=== PATIENT | female | born 1945 | race Caucasian/White ===

== ENCOUNTER → 2017-07-31 | Outpatient (CLI) | payer MEDICARE ==
--- NOTE | 2017-08-01 08:40 | MM ---
Reason for exam: screening (asymptomatic). Last mammogram was performed 1 year and 2 months ago. History: Patient is postmenopausal and has history of other cancer at age 65. Benign stereotactic core biopsy of the right breast, April 27, 2000. 2 cyst aspirations of the left breast. 2 cyst aspirations of the right breast. Benign excisional biopsy of the left breast. Took estrogen for 5 years. Took progesterone for 5 years. Taking other hormone for 2 months. Physical Findings: A clinical breast exam by your physician is recommended on an annual basis and results should be correlated with mammographic findings. MG Screening Mammo w CAD Bilateral CC and MLO view(s) were taken. Prior study comparison: June 13, 2016, bilateral MG screening mammo w CAD. June 04, 2015, bilateral MG screening mammo w CAD. The breast tissue is heterogeneously dense. This may lower the sensitivity of mammography. Previous mammotome biopsy in the right breast. Developing asymmetry in the left breast middle posterior depth. ASSESSMENT: Incomplete: need additional imaging evaluation, BI-RAD 0 RECOMMENDATION: Special view mammogram of the left breast. If lesion persists on supplemental views, image directed ultrasound is recommended. [facility] will attempt to contact patient to return for supplemental views and ultrasound if indicated.
== END | disposition home or self-care (01) ==
LOC: RADMAMWWP 10:42
PROVIDERS: ATTEND Obstetrics & Gynecology
DX: Z12.31 Encounter for screening mammogram for malignant neoplasm of breast (principal)
CPT/HCPCS: 77067

== ENCOUNTER → 2017-08-02 | Outpatient (CLI) | payer MEDICARE ==
--- NOTE | 2017-08-02 11:21 | MM ---
Reason for exam: additional evaluation requested from abnormal screening. Last mammogram was performed less than 1 month ago. History: Patient is postmenopausal and has history of other cancer at age 65. Benign stereotactic core biopsy of the right breast, April 27, 2000. 2 cyst aspirations of the left breast. 2 cyst aspirations of the right breast. Benign excisional biopsy of the left breast. Took estrogen for 5 years. Took progesterone for 5 years. Taking other hormone for 2 months. Physical Findings: Nurse did not find any significant physical abnormalities on exam. MG Work Up Mamm w CAD LT Spot compression CC, spot compression MLO, and LM view(s) were taken of the left breast. Prior study comparison: July 31, 2017, bilateral MG screening mammo w CAD. June 13, 2016, bilateral MG screening mammo w CAD. The breast tissue is heterogeneously dense. This may lower the sensitivity of mammography. There is no discrete abnormality on follow up diagnostic exam films, findings compatible with summation density. Mole markers used. No significant new findings when compared with previous films. These results were verbally communicated with the patient and result sheet given to the patient on 08/02/17. ASSESSMENT: Benign, BI-RAD 2 RECOMMENDATION: Return to routine screening mammogram schedule for both breasts.
== END | disposition home or self-care (01) ==
LOC: RADMAMWWP 10:30
PROVIDERS: ATTEND Obstetrics & Gynecology
DX: R92.8 Other abnormal and inconclusive findings on diagnostic imaging of breast (principal)
CPT/HCPCS: 77065

== ENCOUNTER → 2018-11-25 | Outpatient (CLI) | payer MEDICARE ==
--- NOTE | 2018-11-25 18:09 | BD ---
EXAMINATION TYPE: Axial Bone Density DATE OF EXAM: 11/25/2018 COMPARISON: 07/03/2016 CLINICAL HISTORY: 73-year-old female age-related osteoporosis Height: 60 IN Weight: 165 LBS FRAX RISK QUESTIONS: History of Fracture in Adulthood: TOES [place] FEET APPROX AGE IN HER 50'S RISK FACTORS HISTORY OF: Family History of Osteoporosis: YES MOTHER Active: YES Diet low in dairy products/other sources of calcium: YES Postmenopausal woman: AGE 50 Take estrogen and/or progesterone medications: NOT NOW How long: TOOK ESTROGEN/PROGESTERONE FOR 5 YEARS MEDICATIONS: Thyroid Medications: YES Which medication: Levothyroxine How Lon + YEARS Osteoporosis Medications: NOT NOW Which medication: Boniva How Lon YEARS Additional Medications: LEVOTHYROXINE, VIT D,ATORVASTATIN, NEXIUM, HCTZ, LISINOPRIL, EXAM MEASUREMENTS: Bone mineral densitometry was performed using the [employer] System. Bone mineral density as measured about the Lumbar spine is: ----- L1-L4(G/cm2): 0.904 T Score Values are as follows: ----- L2: -2.2 ----- L3: -2.1 ----- L4: -2.6 ----- L1-L4: -2.3 Bone mineral density has: Increased 5.7% since study of: 07/03/2016 Bone mineral density about the R hip (g/cm2): 0.792 Bone mineral density about the L hip (g/cm2): 0.902 T Score values are as follows: -----R Neck: -1.8 -----L Neck: -1.0 -----R Total: -1.4 -----L Total: -0.1 Bone mineral density has: Increased 2.8% since study of: 07/03/2016 IMPRESSION: Osteopenia (T Score between -2.5 and -1). There is slightly increased risk of fracture and the patient may be considered for treatment. Re-Screen 2-5 years. NOTE: T-SCORE=SD OF THE YOUNG ADULT MEAN.
--- NOTE | 2018-11-26 13:35 | MM ---
Reason for exam: screening (asymptomatic). Last mammogram was performed 1 year and 4 months ago. History: Patient is postmenopausal and has history of other cancer at age 65. Benign stereotactic core biopsy of the right breast, April 27, 2000. 2 cyst aspirations of the left breast. 2 cyst aspirations of the right breast. Benign excisional biopsy of the left breast. Took estrogen for 5 years. Took progesterone for 5 years. Taking other hormone for 2 months. Physical Findings: A clinical breast exam by your physician is recommended on an annual basis and results should be correlated with mammographic findings. MG 3D Screening Mammo W/Cad Bilateral CC and MLO view(s) were taken. Prior study comparison: August 02, 2017, left breast MG work up mamm w CAD LT. July 31, 2017, bilateral MG screening mammo w CAD. The breast tissue is heterogeneously dense. This may lower the sensitivity of mammography. No suspicious abnormality. Right biopsy marker noted. No significant changes when compared with prior studies. ASSESSMENT: Negative, BI-RAD 1 RECOMMENDATION: Routine screening mammogram of both breasts in 1 year.
== END | disposition home or self-care (01) ==
LOC: RADMAMWWP 11:36
PROVIDERS: ATTEND Family Medicine
DX: Z12.31 Encounter for screening mammogram for malignant neoplasm of breast (principal); M85.80 Other specified disorders of bone density and structure, unspecified site
CPT/HCPCS: 77063; 77067; 77080

== ENCOUNTER → 2019-05-28 | Outpatient (CLI) | payer MEDICARE ==
--- NOTE | 2019-05-28 11:26 | XR ---
EXAMINATION TYPE: XR knee complete LT DATE OF EXAM: 05/28/2019 CLINICAL HISTORY: Left knee pain with no known injury. No prior surgical intervention. TECHNIQUE: Three views of the left knee are obtained. COMPARISON: None. FINDINGS: There is no acute fracture/dislocation evident in left knee. The tri-compartment joint sp aces appear aligned with small left lateral compartment and patellar osteophytes. Fabella is incident ally noted. Minimal joint space narrowing of the patellofemoral compartment.. The overlying soft tis danielle appears unremarkable. Mild diffuse osseous demineralization. IMPRESSION: There is no acute fracture or dislocation in the left knee. Mild bicompartmental arthrop athy of the lateral and patellofemoral compartments.
== END | disposition home or self-care (01) ==
LOC: RADXRMAIN 10:37
PROVIDERS: ATTEND Family Medicine
DX: M17.12 Unilateral primary osteoarthritis, left knee (principal)

== ENCOUNTER → 2020-01-26 | Outpatient (CLI) | payer MEDICARE ==
--- NOTE | 2020-01-26 09:19 | MM ---
Reason for exam: clinical finding. Last mammogram was performed 1 year and 2 months ago. History: Patient is postmenopausal and has history of other cancer at age 65. Benign stereotactic core biopsy of the right breast, April 27, 2000. 2 cyst aspirations of the left breast. 2 cyst aspirations of the right breast. Benign excisional biopsy of the left breast. Took estrogen for 5 years. Took progesterone for 5 years. Taking other hormone for 2 months. Indicated problem(s): non-bloody discharge in the right breast. Physical Findings: Nurse did not find any significant physical abnormalities on exam. MG 3D Diag Mammo W/Cad [place] Bilateral CC and MLO view(s) were taken. Prior study comparison: November 25, 2018, bilateral MG 3d screening mammo w/cad. August 02, 2017, left breast MG work up mamm w CAD LT. July 31, 2017, bilateral MG screening mammo w CAD. June 13, 2016, bilateral MG screening mammo w CAD. The breast tissue is heterogeneously dense. This may lower the sensitivity of mammography. Previous mammotome biopsy in the right breast. Subtle new calcifications medial posterior left breast. Four punctate calcifications are here. 6 month follow up recommended. These results were verbally communicated with the patient and result sheet given to the patient on 01/26/20. ASSESSMENT: Probably benign, BI-RAD 3 RECOMMENDATION: Follow-up diagnostic mammogram of the left breast in 6 months.
== END | disposition home or self-care (01) ==
LOC: RADMAMWWP 08:10
PROVIDERS: ATTEND Family Medicine
DX: N64.52 Nipple discharge (principal)
CPT/HCPCS: 77066; G0279; 77062

== ENCOUNTER → 2020-10-19 | Outpatient (CLI) | payer MEDICARE ==
--- NOTE | 2020-10-19 11:19 | MM ---
Reason for exam: follow-up at short interval from prior study. Last mammogram was performed 9 months ago. History: Patient is postmenopausal and has history of other cancer at age 65. Benign stereotactic core biopsy of the right breast, April 27, 2000. 2 cyst aspirations of the left breast. 2 cyst aspirations of the right breast. Benign excisional biopsy of the left breast. Took estrogen for 5 years. Took progesterone for 5 years. Taking other hormone for 2 months. Physical Findings: Nurse did not find any significant physical abnormalities on exam. MG 3D Diag Mammo W/Cad LT CC and MLO view(s) were taken of the left breast. Prior study comparison: January 26, 2020, bilateral MG 3d diag mammo w/cad [place]. November 25, 2018, bilateral MG 3d screening mammo w/cad. No significant new findings when compared with previous films. These results were verbally communicated with the patient and result sheet given to the patient on 10/19/20. ASSESSMENT: Probably benign, BI-RAD 3 RECOMMENDATION: Follow-up diagnostic mammogram of both breasts in 3 months. Back on schedule for December 2020.
== END | disposition home or self-care (01) ==
LOC: RADMAMWWP 10:18
PROVIDERS: ATTEND Family Medicine
DX: N64.89 Other specified disorders of breast (principal); Z78.0 Asymptomatic menopausal state
CPT/HCPCS: 77065; G0279; 77061

== ENCOUNTER → 2020-11-29 | Outpatient (CLI) | payer MEDICARE ==
--- NOTE | 2020-11-29 14:23 | BD ---
EXAMINATION TYPE: Axial Bone Density DATE OF EXAM: 11/29/2020 COMPARISON: 11/25/2018 CLINICAL HISTORY: Height: 59.5 IN Weight: 168 LBS RISK FACTORS HISTORY OF: Family History of Osteoporosis: YES MOTHER Active: YES Diet low in dairy products/other sources of calcium: YES Postmenopausal woman: AGE 50 Take estrogen and/or progesterone medications: NOT NOW How long: TOOK PREMPRO FOR 5 YEARS MEDICATIONS: Thyroid Medications: YES Which medication: Levothyroxine How Lon+ YEARS Osteoporosis Medications: NOT NOW Which medication: Boniva How Long: TOOK FOR 5 YEARS Additional Medications: VIT D, LEVOTHYROXINE, BLOOD PRESSURE MEDS, NEXIUM, LISINOPRIL, HCTZ EXAM MEASUREMENTS: Bone mineral densitometry was performed using the [employer] System. Bone mineral density as measured about the Lumbar spine is: ----- L1-L4(G/cm2): 0.906 T Score Values are as follows: ----- L2: -2.2 ----- L3: -2.2 ----- L4: -2.4 ----- L1-L4: -2.3 Bone mineral density has: Increased 0.2% since study of: 11/25/2018 Bone mineral density about the R hip (g/cm2): 0.776 Bone mineral density about the L hip (g/cm2): 0.918 T Score values are as follows: -----R Neck: -1.9 -----L Neck: -0.9 -----R Total: -1.4 -----L Total: -0.1 Bone mineral density has: Increased 0.1% since study of: 11/25/2018 IMPRESSION: Osteopenia (T Score between -2.5 and -1). There is slightly increased risk of fracture and the patient may be considered for treatment. Re-Screen 2-5 years. NOTE: T-SCORE=SD OF THE YOUNG ADULT MEAN.
== END | disposition home or self-care (01) ==
LOC: RADBDWWP 13:08
PROVIDERS: ATTEND Family Medicine
DX: M85.80 Other specified disorders of bone density and structure, unspecified site (principal)
CPT/HCPCS: 77080

== ENCOUNTER 2021-01-02 19:33 | Observation (INO) | payer MEDICARE ==
[2021-01-02] MEDS ORDERED: SODIUM CHLORIDE 0.9% 500 ML 500 ML IV STA (21:21)
[2021-01-02] MEDS ORDERED: MECLIZINE 12.5 MG TAB PO STA (21:22)
[2021-01-02] MEDS ORDERED: DIAZEPAM 5 MG/ML 2 ML INJ IVP STA (21:22)
[2021-01-02] MEDS ORDERED: ONDANSETRON 4 MG/2 ML VIAL IVP STA (21:25)
--- NOTE | 2021-01-02 21:29 | ED ---
Nausea/Vomiting/Diarrhea HPI - General Chief complaint: Nausea/Vomiting/Diarrhea Stated complaint: vomiting,Dizziness Time Seen by Provider: 01/02/21 20:35 Source: patient Mode of arrival: wheelchair Limitations: no limitations - History of Present Illness Initial comments: 75 year-old female patient presents to the emergency department for evaluation of dizziness and vomiting. Patient states that she has been having dizziness for the last couple of weeks. Initially only when she went from sitting to standing position. She did see her physician who did labs and started her on magnesium. States that her labs were normal and symptoms are worsening. States tonight whenever she moves her head the room spins. States that after the dizziness worsened she started vomiting. States she has had four episodes of vomiting. Denies any headache, blurred vision, or double vision. Denies any chest pain or abdominal pain. Denies numbness, tingling, or weakness to the extremities. Denies history of vertigo or similar symptoms. Denies any ear pain or congesti on. Patient denies any recent rash, fever, chills, cough, shortness of breath, diarrhea, constipation, back pain, numbness, tingling, hematuria, dysuria, urinary urgency, urinary frequency, or any other complaints. - Related Data Home Medications Medication Instructions Recorded Confirmed Esomeprazole Magnesium [NexIUM] 40 mg PO QAM 08/31/14 07/07/16 Levothyroxine Sodium [Synthroid] 50 mcg PO HS 08/31/14 07/07/16 Cholecalciferol [Vitamin D3] 2,000 unit PO DAILY 07/04/16 07/07/16 Naproxen 500 mg PO Q12HR PRN 07/04/16 07/04/16 Rosuvastatin [Crestor] 20 mg PO DAILY 07/04/16 07/07/16 Allergies Allergy/AdvReac Type Severity Reaction Status Date / Time codeine AdvReac Nausea & Verified 01/02/21 19:38 Vomiting Review of Systems ROS Statement: Those systems with pertinent positive or pertinent negative responses have been documented in the HPI. ROS Other: All systems not noted in ROS Statement are negative. Past Medical History Past Medical History: Hypertension Additional Past Medical History / Comment(s): hiatal hernia, osteoporosis, skin cancer History of Any Multi-Drug Resistant Organisms: None Reported Past Surgical History: Appendectomy, Breast Surgery, Section Additional Past Surgical History / Comment(s): HEMORRHOIDECTOMY, surgery for ectopic , surgery after appendectomy for infection, cyst removed left breast, verna cataracts Past Anesthesia/Blood Transfusion Reactions: Postoperative Nausea & Vomiting (PONV) Past Psychological History: No Psychological Hx Reported Smoking Status: Never smoker Past Alcohol Use History: Occasional Past Drug Use History: None Reported - Past Family History Sister(s) Family Medical History: Cancer General Exam Limitations: no limitations General appearance: alert, in no apparent distress, other (Physical well- developed, well-nourished adult female patient in no acute distress. Vital signs upon presentation are temperature 97.6F, pulse 82, respirations 18, blood pressure 149/84, pulse ox 97% on room air.) Eye exam: Present: normal appearance, PERRL, EOMI. Absent: scleral icterus, conjunctival injection, nystagmus, periorbital swelling ENT exam: Present: normal exam, normal oropharynx, mucous membranes moist Respiratory exam: Present: normal lung sounds bilaterally. Absent: respiratory distress, wheezes, rales, rhonchi, stridor Cardiovascular Exam: Present: regular rate, normal rhythm, normal heart sounds. Absent: systolic murmur, diastolic murmur, rubs, gallop, clicks GI/Abdominal exam: Present: soft, normal bowel sounds. Absent: distended, tenderness, guarding, rebound, rigid Neurological exam: Present: alert, oriented X3, CN II-XII intact Expanded Speech: Present: fluid speech Cranial nerves: EOM's Intact: Normal, Tongue Deviation: Normal, Nystagmus: Normal Motor strength exam: RUE: 5, LUE: 5, RLE: 5, LLE: 5 Eye Response: (4) open spontaneously Motor Response: (6) obeys commands Verbal Response: (5) oriented [place] Total: 15 Psychiatric exam: Present: normal affect, normal mood Skin exam: Present: warm, dry, intact, normal color. Absent: rash Course Vital Signs 01/02/21 19:35 Temperature 97.6 F Pulse Rate 82 Respiratory 18 Rate Blood Pressure 149/84 O2 Sat by Pulse 97 Oximetry Medical Decision Making - Medical Decision Making 75-year-old female patient presents to the emergency permit today for evaluation of dizziness, vomiting. This has been going on for the last couple weeks worsen significantly today. Physical examination is unremarkable. She is neurologically intact with no focal deficits. Abdomen is soft and nontender. EKG shows sinus rhythm. CT brain was negative. Chest x-ray negative. She is afebrile with normal vitals. Labs showed impaired kidney function, pt states her Has been monitoring this. Chest shows evidence for urinary tract infection will start Rocephin. Urine culture sent. She'll be admitted to observation. Case discussed with my attending Dr. Ivey. - Lab Data Result diagrams: 01/02/21 21:01/02/21 21: Lab Results 01/02/21 01/02/21 01/02/21 Range/Units 21:26 21: 21: WBC 10.8 H (3.8-10.6) k/uL RBC 4.39 (3.80-5.40) m/uL Hgb 12.7 (11.4-16.0) gm/dL Hct 37.9 (34.0-46.0) % MCV 86.3 (80.0-100.0) fL MCH 29.0 (25.0-35.0) pg MCHC 33.6 (31.0-37.0) g/dL RDW 13.1 (11.5-15.5) % Plt Count 316 (150-450) k/uL MPV 7.7 Neutrophils % 78 % Lymphocytes % 15 % Monocytes % 5 % Eosinophils % 1 % Basophils % 0 % Neutrophils # 8.3 H (1.3-7.7) k/uL Lymphocytes # 1.6 (1.0-4.8) k/uL Monocytes # 0.5 (0-1.0) k/uL Eosinophils # 0.1 (0-0.7) k/uL Basophils # 0.0 (0-0.2) k/uL Sodium 140 (137-145) mmol/L Potassium 3.8 (3.5-5.1) mmol/L Chloride 103 (98-107) mmol/L Carbon Dioxide 27 (22-30) mmol/L Anion Gap 10 mmol/L BUN 40 H (7-17) mg/dL Creatinine 1.24 H (0.52-1.04) mg/dL Est GFR (CKD-EPI)AfAm 49 (>60 ml/min/1.73 sqM) Est GFR (CKD-EPI)NonAf 43 (>60 ml/min/1.73 sqM) Glucose 125 H (74-99) mg/dL Calcium 9.9 (8.4-10.2) mg/dL Total Bilirubin 0.3 (0.2-1.3) mg/dL AST 26 (14-36) U/L ALT 23 (4-34) U/L Alkaline Phosphatase 82 (38-126) U/L Troponin I (0.000-0.034) ng/mL Total Protein 7.5 (6.3-8.2) g/dL Albumin 4.7 (3.5-5.0) g/dL Lipase 251 (23-300) U/L Urine Color Yellow Urine Appearance Cloudy H (Clear) Urine pH 5.5 (5.0-8.0) Ur Specific [place] 1.024 (1.001-1.035) Urine Protein Trace H (Negative) Urine Glucose (UA) Negative (Negative) Urine Ketones Trace H (Negative) Urine Blood Trace H (Negative) Urine Nitrite Negative (Negative) Urine Bilirubin Negative (Negative) Urine Urobilinogen <2.0 (<2.0) mg/dL Ur Leukocyte Esterase Large H (Negative) Urine RBC 7 H (0-5) /hpf Urine WBC 47 H (0-5) /hpf Ur Squamous Epith Cells 3 (0-4) /hpf Amorphous Sediment Rare H (None) /hpf Urine Bacteria Occasional H (None) /hpf Hyaline Casts 1 (0-2) /lpf Urine Mucus Few H (None) /hpf 01/02/21 Range/Units 21:26 WBC (3.8-10.6) k/uL RBC (3.80-5.40) m/uL Hgb (11.4-16.0) gm/dL Hct (34.0-46.0) % MCV (80.0-100.0) fL MCH (25.0-35.0) pg MCHC (31.0-37.0) g/dL RDW (11.5-15.5) % Plt Count (150-450) k/uL MPV Neutrophils % % Lymphocytes % % Monocytes % % Eosinophils % % Basophils % % Neutrophils # (1.3-7.7) k/uL Lymphocytes # (1.0-4.8) k/uL Monocytes # (0-1.0) k/uL Eosinophils # (0-0.7) k/uL Basophils # (0-0.2) k/uL Sodium (137-145) mmol/L Potassium (3.5-5.1) mmol/L Chloride (98-107) mmol/L Carbon Dioxide (22-30) mmol/L Anion Gap mmol/L BUN (7-17) mg/dL Creatinine (0.52-1.04) mg/dL Est GFR (CKD-EPI)AfAm (>60 ml/min/1.73 sqM) Est GFR (CKD-EPI)NonAf (>60 ml/min/1.73 sqM) Glucose (74-99) mg/dL Calcium (8.4-10.2) mg/dL Total Bilirubin (0.2-1.3) mg/dL AST (14-36) U/L ALT (4-34) U/L Alkaline Phosphatase (38-126) U/L Troponin I <0.012 (0.000-0.034) ng/mL Total Protein (6.3-8.2) g/dL Albumin (3.5-5.0) g/dL Lipase (23-300) U/L Urine Color Urine Appearance (Clear) Urine pH (5.0-8.0) Ur Specific [place] (1.001-1.035) Urine Protein (Negative) Urine Glucose (UA) (Negative) Urine Ketones (Negative) Urine Blood (Negative) Urine Nitrite (Negative) Urine Bilirubin (Negative) Urine Urobilinogen (<2.0) mg/dL Ur Leukocyte Esterase (Negative) Urine RBC (0-5) /hpf Urine WBC (0-5) /hpf Ur Squamous Epith Cells (0-4) /hpf Amorphous Sediment (None) /hpf Urine Bacteria (None) /hpf Hyaline Casts (0-2) /lpf Urine Mucus (None) /hpf - EKG Data -: EKG Interpreted by Me EKG Comments: EKG obtained at 2147 shows normal sinus rhythm with a ventricular rate of 85,. Interval 132, QRS duration 90, QT 370, QTC 440. No evidence of ST elevation or depression. - Radiology Data Radiology results: report reviewed, image reviewed CT brain without contrast obtained. Report was reviewed in its entirety. Impression by Dr. Hdz shows cerebral atrophy. Hypodensity right parietal lobe suggestive of small vessel ischemia. No mass effect. Sphenoid sinusitis.. Subsegmental atelectasis left lung base. Normal heart. On chest x-ray. Disposition Clinical Impression: Dizziness, UTI (urinary tract infection), EDENILSON (acute kidney injury), Vomiting Disposition: ADMITTED IP TO THIS HOSP Condition: Serious Referrals: Jose F Franco DO [Primary Care Provider] - 1-2 days Decision to Admit Reason: Admit from EC Decision Date: 01/02/21 Decision Time: 22:31
[2021-01-02 21:39] LABS: Basophils % (A) 0 %; Eosinophils # (A) 0.1 k/uL (0-0.7); Eosinophils % (A) 1 %; HCT 37.9 % (34.0-46.0); HGB 12.7 gm/dL (11.4-16.0); Lymphocytes # (A) 1.6 k/uL (1.0-4.8); Lymphocytes % (A) 15 %; MCHC 33.6 g/dL (31.0-37.0); MCV 86.3 fL (80.0-100.0); Mean Platelet Volume 7.7; Monocytes # (A) 0.5 k/uL (0-1.0); Monocytes % (A) 5 %; Neutrophils # (A) 8.3 k/uL (1.3-7.7); Neutrophils % (A) 78 %; Platelet Count 316 k/uL (150-450); RBC 4.39 m/uL (3.80-5.40); RDW 13.1 % (11.5-15.5); WBC 10.8 k/uL (3.8-10.6)
[2021-01-02 21:48] LABS: Amorphous Sediment,Urine Rare /hpf; Appearance,Urine Cloudy (Clear); Bacteria,Urine Occasional /hpf; Bilirubin,Urine Negative (Negative); Blood,Urine Trace (Negative); Color,Urine Yellow; Glucose,Urine (UA) Negative (Negative); Hyaline Casts,Urine 1 /lpf (0-2); Ketones,Urine Trace (Negative); Leukocyte Esterase,Urine Large (Negative); Mucus,Urine Few /hpf; Nitrite,Urine Negative (Negative); PH, Urine 5.5 (5.0-8.0); Protein,Urine Trace (Negative); RBC,Urine 7 /hpf (0-5); Specific Gravity,Urine 1.024 (1.001-1.035); Squamous Epithelial Cell,Urine 3 /hpf (0-4); Urobilinogen,Urine <2.0 mg/dL (<2.0); WBC,Urine 47 /hpf (0-5)
[2021-01-02 21:53] LABS: Albumin 4.7 g/dL (3.5-5.0); Calcium 9.9 mg/dL (8.4-10.2); Potassium 3.8 mmol/L (3.5-5.1); Total Bilirubin 0.3 mg/dL (0.2-1.3); Total Protein 7.5 g/dL (6.3-8.2)
--- NOTE | 2021-01-02 22:07 | CT ---
EXAMINATION TYPE: CT brain wo con DATE OF EXAM: 01/02/2021 COMPARISON: None HISTORY: dizziness CT DLP: 1084.4 mGycm Automated exposure control for dose reduction was used. There is mild cerebral atrophy. There is some white matter hypodensity right posterior parietal lobe measuring 3 cm. There is no mass effect nor midline shift. There is no sign of intracranial hemorrhag e. Calvarium is intact. Skull base is intact. There is normal aeration of the mastoid sinuses. There is fluid level in the sphenoid sinus. IMPRESSION: Cerebral atrophy. Hypodensity right parietal lobe suggestive of small vessel ischemia. No mass effect . Sphenoid sinusitis.
--- NOTE | 2021-01-02 22:08 | XR ---
EXAMINATION TYPE: XR chest 2V DATE OF EXAM: 01/02/2021 COMPARISON: NONE HISTORY: Dizziness TECHNIQUE: 2 views FINDINGS: There is no heart failure nor confluent pneumonic infiltrate. There is some linear density at the left lung base. There are no hilar masses. Bony thorax is intact. IMPRESSION: Subsegmental atelectasis left lung base. Normal heart.
[2021-01-02] MEDS ORDERED: SODIUM CHLORIDE 0.9% 500 ML 500 ML IV ONE (22:13)
[2021-01-02] MEDS ORDERED: cefTRIAXone IN SWFI 1,000 MG/10 ML SYRINGE IVP STA (22:13)
[2021-01-02] MEDS ORDERED: NALOXONE 0.4 MG/ML 1 ML VIAL IV PRN (22:54)
[2021-01-02] MEDS ORDERED: ONDANSETRON 4 MG/2 ML VIAL IVP PRN (22:54)
[2021-01-02] MEDS ORDERED: MECLIZINE 25 MG TAB PO PRN (22:56)
[2021-01-03] MEDS ORDERED: CHOLECALCIFEROL 25 MCG (1000 IU) TABLET PO SCH (10:30)
[2021-01-03] MEDS: lisinopriL 20 MG TAB PO SCH ×2 (10:40→19:55)
[2021-01-03] MEDS: CHOLECALCIFEROL 25 MCG (1000 IU) TABLET PO SCH (10:40)
[2021-01-03] MEDS: PANTOPRAZOLE 40 MG TABLET PO SCH (10:41)
[2021-01-03 11:34] LABS: Basophils % (A) 0 %; Eosinophils # (A) 0.1 k/uL (0-0.7); Eosinophils % (A) 2 %; HCT 32.4 % (34.0-46.0); HGB 11.1 gm/dL (11.4-16.0); Lymphocytes # (A) 1.5 k/uL (1.0-4.8); Lymphocytes % (A) 21 %; MCHC 34.2 g/dL (31.0-37.0); MCV 87.6 fL (80.0-100.0); Mean Platelet Volume 7.9; Monocytes # (A) 0.4 k/uL (0-1.0); Monocytes % (A) 6 %; Neutrophils # (A) 4.9 k/uL (1.3-7.7); Neutrophils % (A) 70 %; Platelet Count 271 k/uL (150-450); RDW 13.2 % (11.5-15.5)
[2021-01-03 11:55] LABS: Albumin 3.6 g/dL (3.5-5.0); Calcium 8.8 mg/dL (8.4-10.2); Potassium 4.1 mmol/L (3.5-5.1); Total Bilirubin 0.3 mg/dL (0.2-1.3); Total Protein 6.2 g/dL (6.3-8.2)
[2021-01-03 18:28] VITALS: RESP 16
[2021-01-03] MEDS ORDERED: LEVOTHYROXINE 50 MCG TAB PO SCH (21:00)
--- NOTE | 2021-01-03 23:45 | P.HPIM ---
History of Present Illness H&P Date: 01/03/21 Chief Complaint: Nausea and vomiting. Patient is a 75-year-old female with known history of hypertension, hypothyroidism, occasional alcohol use and GERD-like symptoms presents to ER with the complaints of nausea and vomiting started around 5 PM yesterday. She has been having dizziness when she gets up from bed for the past 2 weeks. Initially only when she went from sitting to standing position. Patient was seen by her primary care physician and labs were done. Patient was started on magnesium supplementation.Patient also states that whenever she moves her head the room spins. Dizziness worsened after she started having vomiting. Vomited about 4 times. Denied any chest pain or shortness of breath. No blurred vision no focal weakness. Denies any headache. No fever no chills. No cough or sputum production. No diarrhea. No dysuria or hematuria. Lab data showed WBC 10.8 hemoglobin 12.7 platelets 316 BUN 14 creatinine 1.24 sodium 140 potassium 3.8, blood sugar 125 Troponin 0 0.012 Urinalysis showed cloudy with trace ketones and large leukocyte esterase with RBCs 7 and WBC is 47 Coronavirus PCR not detected. Chest x-ray showed subsegmental atelectasis left lung base. Normal heart. CT head showed just central cerebral atrophy. Hypodensity right parietal lobe suggestive of small vessel ischemia. No mass-effect. Sphenoid sinusitis. EKG showed normal sinus rhythm. Review of Systems Constitutional: Patient denies any fever or chills . + generalized weakness . no weight loss. Abdomen: Patient does have nausea vomiting and no diarrhea or abdominal pain. Cardiovascular: Patient denies any chest pain or short of breath no palpitations. Respiratory: patient denied any cough or sputum production. No shortness of breath Neurologic: Patient denied any numbness or tingling headache. Musculoskeletal: Patient denies any complaints of joint swelling or deformity. Skin: Negative Psychiatric: Negative Endocrine: No heat or cold intolerance. No recent weight gain. Genitourinary: No dysuria or hematuria. All other 14 point ROS negative except the above Past Medical History Past Medical History: Hypertension Additional Past Medical History / Comment(s): hiatal hernia, osteoporosis, skin cancer History of Any Multi-Drug Resistant Organisms: None Reported Past Surgical History: Appendectomy, Breast Surgery, Section Additional Past Surgical History / Comment(s): HEMORRHOIDECTOMY, surgery for ectopic , surgery after appendectomy for infection, cyst removed left breast, verna cataracts Past Anesthesia/Blood Transfusion Reactions: Postoperative Nausea & Vomiting (PONV) Past Psychological History: No Psychological Hx Reported Smoking Status: Never smoker Past Alcohol Use History: Occasional Past Drug Use History: None Reported - Past Family History Sister(s) Family Medical History: Cancer Mother Family Medical History: Hypertension Additional Family Medical History / Comment(s): Osteoporosis. Mother lived to be 94 yrs old. Father History Unknown: Yes Medications and Allergies Home Medications Medication Instructions Recorded Confirmed Type Esomeprazole Magnesium [NexIUM] 40 mg PO DAILY PRN 08/31/14 01/02/21 History Levothyroxine Sodium [Synthroid] 50 mcg PO HS 08/31/14 01/02/21 History Cholecalciferol [Vitamin D3] 1,000 unit PO DAILY 07/04/16 01/02/21 History Magnesium 250 mg PO DAILY 01/02/21 01/02/21 History hydroCHLOROthiazide [Hydrodiuril] 12.5 mg PO DAILY 01/02/21 01/02/21 History lisinopriL [Zestril] 20 mg PO BID 01/02/21 01/02/21 History Allergies Allergy/AdvReac Type Severity Reaction Status Date / Time codeine AdvReac Nausea & Verified 01/02/21 23:20 Vomiting Physical Exam Vitals: Vital Signs Temp Pulse Resp BP Pulse Ox 01/03/21 08:07 98.0 F 77 16 140/76 99 01/03/21 05:00 98.3 F 74 18 132/78 97 01/03/21 01:33 98.5 F 81 20 138/78 97 01/02/21 19:35 97.6 F 82 18 149/84 97 Intake and Output 01/02/21 01/03/21 01/03/21 22:59 06:59 14:59 Other: Voiding Method Toilet Weight 74.389 kg PHYSICAL EXAMINATION: Patient is lying in the bed comfortably, no acute distress, awake alert and oriented.. HEENT: Normocephalic. Neck is supple. Pupils reactive. Nostrils clear. Oral cavity is moist. Ears reveal no drainage. Neck reveals no JVD, carotid bruits, or thyromegaly. CHEST EXAMINATION: Trachea is central. Symmetrical expansion. Lung ventura clear to auscultation and percussion. CARDIAC: Normal S1, S2 with no gallops. No murmurs ABDOMEN: Soft. Bowel sounds normal. No organomegaly. No abdominal bruits. Extremities: reveal no edema. No clubbing or cyanosis Neurologically awake, alert, oriented x3 with well-coordinated movements. No focal deficits noted Skin: No rash or skin lesions. Psychiatric: Coperative. Nonsuicidal Musculoskeletal: No joint swelling or deformity. Normal range of motion. Results CBC & Chem 7: 01/03/21 10:35 01/03/21 10:35 Labs: Abnormal Lab Results - Last 24 Hours (Table) 01/02/21 01/02/21 01/02/21 Range/Units 21:26 21:26 21:26 WBC 10.8 H (3.8-10.6) k/uL Neutrophils # 8.3 H (1.3-7.7) k/uL BUN 40 H (7-17) mg/dL Creatinine 1.24 H (0.52-1.04) mg/dL Glucose 125 H (74-99) mg/dL Urine Appearance Cloudy H (Clear) Urine Protein Trace H (Negative) Urine Ketones Trace H (Negative) Urine Blood Trace H (Negative) Ur Leukocyte Esterase Large H (Negative) Urine RBC 7 H (0-5) /hpf Urine WBC 47 H (0-5) /hpf Amorphous Sediment Rare H (None) /hpf Urine Bacteria Occasional H (None) /hpf Urine Mucus Few H (None) /hpf Microbiology - Last 24 Hours (Table) 01/02/21 21:26 Urine Culture - Preliminary Urine,Voided Thrombosis Risk Factor Assmnt - DVT/VTE Prophylaxis DVT/VTE Prophylaxis: Pharmacologic Prophylaxis ordered Assessment and Plan Assessment: Acute urinary tract infection. Intractable nausea vomiting. Dizziness likely due to orthostatic hypotension. Improving. Acute kidney injury likely prerenal. Hypertension controlled. Hiatal hernia Hypothyroidism DVT prophylaxis with heparin subcu Plan: Patient will be continued on IV hydration and antibiotics in the form of ceftriaxone. Orthostatic vitals will be ordered. Continue with home medications and follow-up renal function. Follow-up urine culture report. Further recommendations based on clinical course. Time with Patient: Greater than 30
[2021-01-04 02:42] VITALS: TEMP 97.9
[2021-01-04] MEDS: SODIUM CHLORIDE 0.9% 1,000 ML IV SCH ×2 (04:11→13:47)
[2021-01-04] MEDS: HEPARIN SODIUM,PORCINE/PF 5,000 UNIT/0.5 ML SYRINGE SQ SCH ×2 (04:13→07:58)
[2021-01-04 07:45] VITALS: BP 116/73; PULSE 55
[2021-01-04] MEDS: PANTOPRAZOLE 40 MG TABLET PO SCH (07:56)
[2021-01-04] MEDS: CHOLECALCIFEROL 25 MCG (1000 IU) TABLET PO SCH (07:57)
[2021-01-04] MEDS: lisinopriL 20 MG TAB PO SCH (07:57)
[2021-01-04] MEDS ORDERED: MAGNESIUM OXIDE 400 MG TAB PO SCH (09:00)
[2021-01-04 09:34] LABS: Basophils # (A) 0.03 X 10*3/uL (0.00-0.10); Basophils % (A) 0.5 %; Eosinophils # (A) 0.17 X 10*3/uL (0.04-0.35); Eosinophils % (A) 2.9 %; HCT 34.2 % (37.2-46.3); HGB 11.2 g/dL (12.0-15.0); Lymphocytes # (A) 1.79 X 10*3/uL (0.90-5.00); Lymphocytes % (A) 30.1 %; MCH 29.9 pg (27.0-32.0); MCHC 32.7 g/dL (32.0-37.0); MCV 91.2 fL (80.0-97.0); Monocytes # (A) 0.48 X 10*3/uL (0.20-1.00); Monocytes % (A) 8.1 %; Neutrophils # (A) 3.45 X 10*3/uL (1.80-7.70); Neutrophils % (A) 58.1 %; Platelet Count 283 X 10*3/uL (140-440); RBC 3.75 X 10*6/uL (4.10-5.20); RDW 13.4 % (11.5-14.5); WBC 5.94 X 10*3/uL (4.50-10.00)
[2021-01-04 10:16] LABS: African American GFR (CKD) 51.2 (60.0-200.0); Anion Gap 8.2 mmol/L (4.00-12.00); Calcium 9.3 mg/dL (8.7-10.3); Carbon Dioxide 26.8 mmol/L (21.6-31.8); Non-African American GFR(CKD) 44.2 (60.0-200.0)
--- NOTE | 2021-01-06 16:06 | P.DS ---
Providers Date of admission: 01/02/21 22:18 Expected date of discharge: 01/04/21 Attending physician: Serge Brown MD Primary care physician: Jose F Franco [place] [facility] Course: Final diagnosis Acute urinary tract infection. Intractable nausea vomiting. Dizziness likely due to orthostatic hypotension. Improved Acute kidney injury likely prerenal. Hypertension controlled. Hiatal hernia Hypothyroidism DVT prophylaxis Discharge disposition Patient is being discharged in a stable condition with guarded prognosis to home. Patient will follow-up with Dr. Ina Franco in the outpatient setting upon discharge. Patient is also to continue with oral Ceftin 500 mg twice daily for the next 3 days along with pyridium as needed in the outpatient setting. Prescription provided for repeat labs to monitor kidney functions and electrolytes. Total time taken is greater than 35 minutes. Hospital course Patient is a 75-year-old female with known history of hypertension, hypothyroidism, occasional alcohol use and GERD-like symptoms presents to ER with the complaints of nausea and vomiting started around 5 PM yesterday. She has been having dizziness when she gets up from bed for the past 2 weeks. Initially only when she went from sitting to standing position. Patient was seen by her primary care physician and labs were done. Patient was started on magnesium supplementation.Patient also states that whenever she moves her head the room spins. Dizziness worsened after she started having vomiting. Vomited about 4 times. Denied any chest pain or shortness of breath. No blurred vision no focal weakness. Denies any headache. No fever no chills. No cough or sputum production. No diarrhea. No dysuria or hematuria. Lab data showed WBC 10.8 hemoglobin 12.7 platelets 316 BUN 14 creatinine 1.24 sodium 140 potassium 3.8, blood sugar 125 Troponin 0 0.012 Urinalysis showed cloudy with trace ketones and large leukocyte esterase with RBCs 7 and WBC is 47 Coronavirus PCR not detected. Chest x-ray showed subsegmental atelectasis left lung base. Normal heart. CT head showed just central cerebral atrophy. Hypodensity right parietal lobe suggestive of small vessel ischemia. No mass-effect. Sphenoid sinusitis. EKG showed normal sinus rhythm. 01/04/2021 Patient is seen and evaluated and follow-up with no acute overnight issues noted. Patient states she is feeling much better and would like to go home. Dizziness has resolved. Patient continues on IV ceftriaxone and urine cultures are negative. Will continue with oral Ceftin 500 mg twice daily for the next 3 days along with pyridium as needed as she continues to have some abdominal pressure noted with urination. Patient instructed to follow-up with primary care provider upon discharge. Current creatinine 1.2 and white blood count improved and prescription provided for repeat labs in a few days to monitor CBC and BMP. Currently no reports of chest pain, shortness of breath, or palpitations. Patient is afebrile. No reports of nausea or vomiting noted. Patient will be discharged home today. On exam vital signs are stable. Cardio S1, S2 are muffled. Respiratory system shows diminished breath sounds at the bases with no wheezing or rhonchi noted. Abdomen is soft and nontender. Nervous system shows no focal deficits. Please refer to medication reconciliation sheet for a list of medications. Patient Condition at Discharge: Stable Plan - Discharge Summary Discharge Rx Participant: No New Discharge Prescriptions: New Cefuroxime Axetil [Ceftin] 500 mg PO BID 3 Days #6 tab Phenazopyridine HCl [Pyridium] 100 mg PO TID PRN #9 tab PRN Reason: Pain Continue Levothyroxine Sodium [Synthroid] 50 mcg PO HS Esomeprazole Magnesium [NexIUM] 40 mg PO DAILY PRN PRN Reason: gerds Cholecalciferol [Vitamin D3 (25 Mcg = 1000 Iu)] 1,000 unit PO DAILY Magnesium 250 mg PO DAILY Changed lisinopriL [Zestril] 20 mg PO DAILY #0 Discontinued hydroCHLOROthiazide [Hydrodiuril] 12.5 mg PO DAILY Discharge Medication List Esomeprazole Magnesium [NexIUM] 40 mg PO DAILY PRN 08/31/14 [History] Levothyroxine Sodium [Synthroid] 50 mcg PO HS 08/31/14 [History] Cholecalciferol [Vitamin D3 (25 Mcg = 1000 Iu)] 1,000 unit PO DAILY 07/04/16 [History] Magnesium 250 mg PO DAILY 01/02/21 [History] Cefuroxime Axetil [Ceftin] 500 mg PO BID 3 Days #6 tab 01/04/21 [Rx] Phenazopyridine HCl [Pyridium] 100 mg PO TID PRN #9 tab 01/04/21 [Rx] lisinopriL [Zestril] 20 mg PO DAILY #0 01/04/21 [Rx] Follow up Appointment(s)/Referral(s): Jose F Franco DO [Primary Care Provider] - 1-2 days Ambulatory/Diagnostic Orders: Basic Metabolic Panel [LAB.AMB] Time Frame: 2 Days, Location: None Selected Activity/Diet/Wound Care/Special Instructions: Activity limited until follow up repeat labs in 2-3 days continue antibiotics until finished Follow-up with primary care provider upon discharge continue to hold hydrochlorothiazide until follow-up Continue with lisinopril once daily Keep a diary of blood pressure readings for primary care follow-up Discharge Disposition: HOME SELF-CARE
== END 2021-01-04 14:26 | disposition home or self-care (01) ==
LOC: EC 19:33 → 1SOBS 22:18 → 6NMEDSUR 01-03 13:26
PROVIDERS: ADMIT Internal Medicine; ATTEND Internal Medicine
DX: N39.0 Urinary tract infection, site not specified (principal); N17.9 Acute kidney failure, unspecified; I10 Essential (primary) hypertension; R42 Dizziness and giddiness; K44.9 Diaphragmatic hernia without obstruction or gangrene; M81.0 Age-related osteoporosis without current pathological fracture; J32.3 Chronic sphenoidal sinusitis; E03.9 Hypothyroidism, unspecified; J98.11 Atelectasis; G31.9 Degenerative disease of nervous system, unspecified; Z79.890 Hormone replacement therapy; Z79.899 Other long term (current) drug therapy; Z88.5 Allergy status to narcotic agent; Z85.828 Personal history of other malignant neoplasm of skin; Z98.891 History of uterine scar from previous surgery; Z90.49 Acquired absence of other specified parts of digestive tract; Z98.42 Cataract extraction status, left eye; Z98.41 Cataract extraction status, right eye; Z98.890 Other specified postprocedural states; Z80.9 Family history of malignant neoplasm, unspecified; Z82.49 Family history of ischemic heart disease and other diseases of the circulatory system; Z82.62 Family history of osteoporosis
CPT/HCPCS: 96365; 96376; 96361; 96375; 99285; 36415; 93005; 97161; 80053 ×2; 80048; 83690; 84484; 85025 ×3; 81001; 87086; 87635; 71046; 70450; G0378 ×4; J3360; J2405; J0696 ×2

== ENCOUNTER → 2021-01-27 | Outpatient (CLI) | payer MEDICARE ==
--- NOTE | 2021-01-28 11:06 | MM ---
Reason for exam: additional evaluation requested from prior study. Last mammogram was performed 3 months ago. History: Patient is postmenopausal and has history of other cancer at age 65. Benign stereotactic core biopsy of the right breast, April 27, 2000. 2 cyst aspirations of the left breast. 2 cyst aspirations of the right breast. Benign excisional biopsy of the left breast. Took estrogen for 5 years. Took progesterone for 5 years. Taking other hormone for 2 months. Physical Findings: Nurse did not find any significant physical abnormalities on exam. MG Diagnostic Mammo w CAD [facility] Bilateral CC and MLO view(s) were taken. Prior study comparison: October 19, 2020, left breast MG 3d diag mammo w/cad LT. January 26, 2020, bilateral MG 3d diag mammo w/cad [facility]. November 25, 2018, bilateral MG 3d screening mammo w/cad. The breast tissue is heterogeneously dense. This may lower the sensitivity of mammography. Left punctate inferior medial calcifications 8cm from nipple, stable, probably benign. Previous mammotome biopsy in the right breast. Right 1 year screening. No significant new findings when compared with previous films. These results were verbally communicated with the patient and result sheet given to the patient on 01/27/21. ASSESSMENT: Probably benign, BI-RAD 3 RECOMMENDATION: Follow-up diagnostic mammogram of the left breast in 6 months.
== END | disposition home or self-care (01) ==
LOC: RADMAMWWP 10:55
PROVIDERS: ATTEND Family Medicine
DX: N64.89 Other specified disorders of breast (principal)
CPT/HCPCS: 77066

== ENCOUNTER → 2021-08-12 | Outpatient (CLI) | payer MEDICARE ==
--- NOTE | 2021-08-15 09:28 | MM ---
Reason for exam: follow-up at short interval from prior study. Last mammogram was performed 6 months ago. History: Patient is postmenopausal and has history of other cancer at age 65. Benign stereotactic core biopsy of the right breast, April 27, 2000. 2 cyst aspirations of the left breast. 2 cyst aspirations of the right breast. Benign excisional biopsy of the left breast. Took estrogen for 5 years. Took progesterone for 5 years. Taking other hormone for 2 months. Physical Findings: Nurse did not find any significant physical abnormalities on exam. MG 3D Diag Mammo W/Cad LT CC, MLO, CC with magnification, ML with magnification, and LM view(s) were taken of the left breast. Prior study comparison: January 27, 2021, bilateral MG diagnostic mammo w CAD [facility]. October 19, 2020, left breast MG 3d diag mammo w/cad LT. There are scattered fibroglandular densities. Finding: There are stable typically benign segmental fine calcifications in the lower inner quadrant, posterior position of the left breast. No significant changes in finding since January 27, 2021 and October 19, 2020. These results were verbally communicated with the patient and result sheet given to the patient on 08/12/21. ASSESSMENT: Probably benign, BI-RAD 3 RECOMMENDATION: Follow-up diagnostic mammogram of both breasts in 6 months.
== END | disposition home or self-care (01) ==
LOC: RADMAMWWP 10:56
PROVIDERS: ATTEND Internal Medicine
DX: R92.2 Inconclusive mammogram (principal); R92.1 Mammographic calcification found on diagnostic imaging of breast; Z78.0 Asymptomatic menopausal state
CPT/HCPCS: 77065; G0279; 77061

== ENCOUNTER 2022-02-02 12:26 | Day surgery (SDC) | payer MEDICARE ==
[2022-01-27 10:41] VITALS: BMI 31.2
[~2022-02-02 12:26] MED LIST: ACETAMINOPHEN TAB 500 MG TAB PO PRN; DEXAMETHASONE SOD PHOSPHATE 4 MG/ML 1 ML VIAL IV ONE; HEPARIN SODIUM,PORCINE/PF 5,000 UNIT/0.5 ML SYRINGE SQ PRN; LACTATED RINGERS 1,000 ML IV SCH; ONDANSETRON 4 MG/2 ML VIAL IVP ONE; Pre Op ABX Message 1 EACH MISC MISCELLANE ONE; fentaNYL (PF) 50 MCG/ML 2 ML AMP IV PRN
[2022-02-02 13:48] LABS: Glucose,Whole Blood 95 mg/dL (70-110)
[2022-02-02] MEDS ORDERED: MIDAZOLAM 2 MG/2 ML VIAL IVP ONE (14:00)
[2022-02-02 14:06] VITALS: RESP 16
[2022-02-02] MEDS ORDERED: BUPIVACAIN-EPI 0.25%-1:200,000 30 ML VIAL SQ ONE ×3 (14:19→14:50)
[2022-02-02] MEDS ORDERED: LIDOCAINE 4% LTA KIT (4 ML) TOPICAL ONE (14:20)
[2022-02-02] MEDS ORDERED: PHENYLEPHRINE-0.9% NACL SYG 1,000 MCG/10 ML SYRINGE ONE (14:20)
[2022-02-02] MEDS ORDERED: SUCCINYLCHOLINE CHLORIDE 100 MG/5 ML SYR IV ONE (14:20)
[2022-02-02] MEDS ORDERED: ePHEDrine 50 MG/ML 1 ML VIAL ONE (14:20)
[2022-02-02] MEDS ORDERED: fentaNYL (PF) 50 MCG/ML 2 ML AMP ONE (14:20)
[2022-02-02] MEDS ORDERED: LIDOCAINE 2% INJ 20 MG/ML (2 ML VIAL) ONE (14:20)
[2022-02-02] MEDS ORDERED: MIDAZOLAM 2 MG/2 ML VIAL ONE (14:20)
[2022-02-02] MEDS ORDERED: PROPOFOL 10 MG/ML 20 ML VIAL IV ONE (14:20)
[2022-02-02] MEDS ORDERED: SODIUM CHLORIDE 0.9% 50 ML with ceFAZolin 2,000 MG IV ONE ×2 (14:50)
[2022-02-02] MEDS ORDERED: traMADol 50 MG TAB PO PRN (15:21)
[2022-02-02] MEDS ORDERED: NALOXONE 0.4 MG/ML 1 ML VIAL IV PRN (15:21)
--- NOTE | 2022-02-02 15:25 | P.OP ---
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 COMPLICATIONS: None OPERATIVE PROCEDURE: Patient placed in the right decubitus position. The left shoulder was prepped and draped sterile. An elliptical incision was made encompassing the skin lesion that was recently biopsied. Margins of approximately 1 cm circumferentially were obtained. Size of excision 3.5 x 7 cm. Subcutaneous tissues inspected. No bleeding was seen. Simultaneous tissues closed using 3-0 Vicryl sutures. Skin closed using a running 4-0 nylon suture. Sterile dressings applied. DISPOSITION: Stable to recovery room
[2022-02-02 15:31] VITALS: TEMP 97
[2022-02-02 16:24] VITALS: BP 133/79; PULSE 90
== END 2022-02-02 16:49 | disposition home or self-care (01) ==
LOC: OR 12:26
PROVIDERS: ATTEND Surgery
DX: C43.62 Malignant melanoma of left upper limb, including shoulder (principal); Z88.5 Allergy status to narcotic agent; Z88.8 Allergy status to other drugs, medicaments and biological substances; Z79.899 Other long term (current) drug therapy; Z79.890 Hormone replacement therapy; Z80.0 Family history of malignant neoplasm of digestive organs; Z82.49 Family history of ischemic heart disease and other diseases of the circulatory system; Z82.62 Family history of osteoporosis
CPT/HCPCS: 11606; J2250; J1100; J2405; J0690; J3010; J2370; J0330; J2704; J1644; J2001

== ENCOUNTER → 2022-03-01 | Outpatient (CLI) | payer MEDICARE ==
--- NOTE | 2022-03-01 11:58 | MM ---
Reason for Exam: Follow-up at short interval from prior study. Last mammogram was performed 1 year(s) and 1 month(s) ago. Patient History: Menarche at age 13. First Full-Term at age 21. Postmenopausal. Other cancer, age 65. Patient used Estrogen for 5 years. Patient used Progesterone for 5 years. Cyst Aspiration on the Right side. Cyst Aspiration on the Right side. Cyst Aspiration on the Left side. Cyst Aspiration on the Left side. Benign Excisional Biopsy on the left side. 04/27/2000, Benign Stereotactic Core Biopsy on the right side. Risk Values: Cindi 5 year model risk: 2.4%. NCI Lifetime model risk: 4.8%. Tissue Density: The breast tissue is heterogeneously dense. This may lower the sensitivity of mammography. Findings: Analyzed By CAD. Microclip right breast from prior biopsy. Asymmetric densities on the left remain unchanged as do punctate calcifications. Asymmetric density lateral right cc view incompletely disperses on additional views. Not well localized on the MLO or true lateral view. Further ultrasound evaluation recommended. Overall Assessment: Incomplete: need additional imaging evaluation, BI-RAD 0 Management: Diagnostic Breast Ultrasound of the right breast. 7-11 o'clock for the asymmetric density. Electronically signed and approved by: Gil Velasquez M.D. Radiologist
--- NOTE | 2022-03-01 17:45 | USB ---
Patient History: Menarche at age 13. First Full-Term at age 21. Postmenopausal. Other cancer, age 65. Patient used Estrogen for 5 years. Patient used Progesterone for 5 years. Cyst Aspiration on the Right side. Cyst Aspiration on the Right side. Cyst Aspiration on the Left side. Cyst Aspiration on the Left side. Benign Excisional Biopsy on the left side. 04/27/2000, Benign Stereotactic Core Biopsy on the right side. Risk Values: Cindi 5 year model risk: 2.4%. NCI Lifetime model risk: 4.8%. Prior Study Comparison: 10/19/2020 Left Diagnostic Mammogram, [facility]. 01/27/2021 Bilateral Diagnostic Mammogram, [facility]. 08/12/2021 Left Diagnostic Mammogram, [facility]. Findings: The lateral section of the breast of the right breast, the axilla of the right breast and the retroareolar of the right breast were scanned. Targeted ultrasound lateral portion from 7:00 to 11:00 as well as the axilla and subareolar region. There is no solid or cystic lesion or axillary lymphadenopathy. Six-month follow-up mammogram recommended. Overall Assessment: Probably benign, BI-RAD 3 Management: Diagnostic Mammogram of the right breast in 6 months. 1. Six-month follow-up diagnostic right breast mammogram to reassess the lateral asymmetric density. 2. Patient should continue monthly self breast exams. A clinical breast exam by your physician is recommended on an annual basis. 3. This exam should not preclude additional follow-up of suspicious palpable abnormalities. Electronically signed and approved by: Gil Velasquez M.D. Radiologist
== END | disposition home or self-care (01) ==
LOC: RADMAMWWP 11:01
PROVIDERS: ATTEND Internal Medicine
DX: R92.8 Other abnormal and inconclusive findings on diagnostic imaging of breast (principal); Z78.0 Asymptomatic menopausal state
CPT/HCPCS: 77066; 76642; G0279; 77062

== ENCOUNTER → 2022-09-01 | Outpatient (CLI) | payer MEDICARE ==
--- NOTE | 2022-09-01 14:38 | MM ---
Reason for Exam: Follow-up at short interval from prior study. Last screening mammogram was performed 6 month(s) ago. Patient History: Menarche at age 13. First Full-Term at age 21. Postmenopausal. Other cancer, age 65. Patient used Estrogen for 5 years. Patient used Progesterone for 5 years. Cyst Aspiration on the Right side. Cyst Aspiration on the Right side. Cyst Aspiration on the Left side. Cyst Aspiration on the Left side. Benign Excisional Biopsy on the left side. 04/27/2000, Benign Stereotactic Core Biopsy on the right side. Risk Values: Cindi 5 year model risk: 2.3%. NCI Lifetime model risk: 4.5%. Prior Study Comparison: 08/09/1995 Screening Mammogram, Unknown. 08/18/1996 Screening Mammogram, Unknown. 02/20/2012 Bilateral Screening Mammogram, [facility]. 02/24/2013 Bilateral Screening Mammogram, [facility]. 03/23/2014 Bilateral Screening Mammogram, [facility]. 06/04/2015 Bilateral Screening Mammogram, [facility]. 06/13/2016 Bilateral Screening Mammogram, [facility]. 07/31/2017 Bilateral Screening Mammogram, [facility]. 08/02/2017 Left Diagnostic Mammogram, [facility]. 11/25/2018 Bilateral Screening Mammogram, [facility]. 01/26/2020 Bilateral Diagnostic Mammogram, [facility]. 10/19/2020 Left Diagnostic Mammogram, [facility]. 01/27/2021 Bilateral Diagnostic Mammogram, [facility]. 08/12/2021 Left Diagnostic Mammogram, [facility]. 03/01/2022 Right US breast limited RT, [facility]. 03/01/2022 Bilateral MG 3D diag mammo w/cad [facility]. Tissue Density: The breast tissue is heterogeneously dense. This may lower the sensitivity of mammography. Findings: Analyzed By CAD. Biopsy clip right breast redemonstrated. No suspicious new mass or distortion in either breast. Overall Assessment: Negative, BI-RAD 1 Management: Screening Mammogram of both breasts in 1 year. A clinical breast exam by your physician is recommended on an annual basis and results should be correlated with mammographic findings. This exam should not preclude additional follow-up of suspicious palpable abnormalities. Results were given to the patient verbally at the time of exam. Electronically signed and approved by: Rafy Lazaro M.D.
== END | disposition home or self-care (01) ==
LOC: RADMAMWWP 14:13
PROVIDERS: ATTEND Internal Medicine
DX: R92.2 Inconclusive mammogram (principal); Z78.0 Asymptomatic menopausal state; Z98.890 Other specified postprocedural states
CPT/HCPCS: 77066; G0279; 77062

== ENCOUNTER → 2022-11-14 | Outpatient (CLI) | payer MEDICARE ==
[2022-11-14 16:36] LABS: Creatinine,Urine Random 195.7 mg/dL; Protein/Creatinine Ratio,Urine 0.082
[2022-11-15 02:00] LABS: Appearance,Urine Turbid (Clear); Bilirubin,Urine Negative (Negative); Blood,Urine Negative (Negative); Color,Urine Yellow (Yellow); Ketones,Urine Negative (Negative); Nitrite,Urine Negative (Negative); PH, Urine 5.5 (5.0-8.0); Specific Gravity,Urine 1.026 (1.001-1.030); Urobilinogen,Urine 0.2 (0.2,1.0)
[2022-11-15 02:20] LABS: Bacteria,Urine None Seen /HPF (None Seen); Calcium Oxalate Crystals,Urine Present /LPF (None Seen)
[2022-11-15 02:26] LABS: % Iron Saturation 13.05 (12.00-45.00)
[2022-11-15 02:33] LABS: Phosphorus 4.2 mg/dL (2.4-5.1); Uric Acid 4.5 mg/dL (2.9-7.7)
== END | disposition home or self-care (01) ==
LOC: LABWHC1 14:34
PROVIDERS: ATTEND Internal Medicine
DX: E11.22 Type 2 diabetes mellitus with diabetic chronic kidney disease (principal); N18.2 Chronic kidney disease, stage 2 (mild)
CPT/HCPCS: 36415; 81001; 82043; 82306; 82570; 82728; 83036; 83540; 83550; 83735; 83970; 84100; 84156; 84550

== ENCOUNTER → 2022-12-13 | Outpatient (CLI) | payer MEDICARE ==
--- NOTE | 2022-12-13 12:04 | BD ---
EXAMINATION TYPE: Axial Bone Density DATE OF EXAM: 12/13/2022 CLINICAL HISTORY: 77 years old Female. ICD-10 CODE: M85.851 OSTEOPENIA RT HIP Height: 59.25in Weight: 166lb FRAX RISK QUESTIONS: Secondary Osteoporosis: RISK FACTORS HISTORY OF: Family History of Osteoporosis: yes Active: yes Postmenopausal woman: yes Take estrogen and/or progesterone medications: yes, none current How lon years MEDICATIONS: Thyroid Medications: Which medication: Levothyroxine How Lon+ years Additional Medications: bp meds, diabetic meds, vitamin d, reflux med Additional History: type II diabetes EXAM MEASUREMENTS: Bone mineral densitometry was performed using the [employer] System. Bone mineral density as measured about the Lumbar spine is: ----- L1-L4(G/cm2): 0.968 T Score Values are as follows: ----- L1: -1.6 ----- L2: -1.9 ----- L3: -1.5 ----- L4: -2.1 ----- L1-L4: -1.8 Z Score Values are as follows: ----- L1: -0.2 ----- L2: -0.4 ----- L3: -0.1 ----- L4: -0.7 ----- L1-L4: -0.3 Bone mineral density has: Increased 6.8% since study of: 11-29-20 Bone mineral density about the R hip (g/cm2): 0.804 Bone mineral density about the L hip (g/cm2): 0.991 T Score values are as follows: -----R Neck: -2.2 -----L Neck: -0.8 -----R Total: -1.6 -----L Total: -0.1 Z Score values are as follows: -----R Neck: -0.4 -----L Neck: 1.0 -----R Total: 0.0 -----L Total: 1.5 Bone mineral density has: Decreased -1.6% since study of: 11-29-20 FRAX%s: The graph provided illustrates a 14.6% chance for a major osteoporotic fx and a 4.2% chance f or the hips probability for fx in 10 years time. IMPRESSION: Osteopenia (T Score between -2.5 and -1). There is slightly increased risk of fracture and the patient may be considered for treatment. Re-Screen 2-5 years. NOTE: T-SCORE=SD OF THE YOUNG ADULT MEAN.
== END | disposition home or self-care (01) ==
LOC: RADBDWWP 11:11
PROVIDERS: ATTEND Internal Medicine
DX: M85.89 Other specified disorders of bone density and structure, multiple sites (principal); Z78.0 Asymptomatic menopausal state; E11.9 Type 2 diabetes mellitus without complications; Z79.899 Other long term (current) drug therapy
CPT/HCPCS: 77080

== ENCOUNTER → 2023-07-10 | Outpatient (CLI) | payer MEDICARE ==
[2023-07-10 11:38] LABS: Creatinine,Urine Random 234.7 mg/dL; Protein/Creatinine Ratio,Urine 0.068
[2023-07-10 11:45] LABS: Appearance,Urine Clear (Clear); Color,Urine Orange; Hyaline Casts,Urine 3 /lpf (0-2); Mucus,Urine Many /hpf; Protein,Urine Trace (Negative); RBC,Urine 3 /hpf (0-5); Squamous Epithelial Cell,Urine 11 /hpf (0-4); WBC,Urine 15 /hpf (0-5)
[2023-07-10 11:46] LABS: Bilirubin,Urine 1+ (Negative); Blood,Urine Negative (Negative); Glucose,Urine (UA) 4+ (Negative); Ketones,Urine Negative (Negative); Leukocyte Esterase,Urine Trace (Negative); Nitrite,Urine Negative (Negative); Urobilinogen,Urine 0.2 mg/dL (<2.0)
--- NOTE | 2023-07-10 12:11 | XR ---
EXAMINATION TYPE: XR Hip Complete RT DATE OF EXAM: 07/10/2023 COMPARISON: None HISTORY: Pain TECHNIQUE: 2 view right hip FINDINGS: Femoral head articulates with the acetabulum. No acute fracture or dislocation is evident. Joint space appears preserved. IMPRESSION: 1. No acute osseous abnormality right hip
--- NOTE | 2023-07-10 12:13 | XR ---
EXAMINATION TYPE: XR foot complete LT DATE OF EXAM: 07/10/2023 COMPARISON: None HISTORY: Pain TECHNIQUE: 3 view left foot FINDINGS: No acute fracture or dislocation is evident. Mild degenerative joint changes at the first m etatarsal phalangeal joint space. Some proximal interphalangeal joint space narrowing is present. Leah ntar calcaneal heel spur is present. Soft tissues are normal. Follow up exams can be performed 7-10 days from acute trauma for continued pain. IMPRESSION: 1. No acute osseous abnormality left foot.
[2023-07-10 15:40] LABS: Basophils # (A) 0.04 X 10*3/uL (0.00-0.10); Basophils % (A) 0.5 %; Eosinophils # (A) 0.17 X 10*3/uL (0.04-0.35); Eosinophils % (A) 2.3 %; HCT 43.7 % (37.2-46.3); HGB 14.3 g/dL (12.0-15.0); Lymphocytes # (A) 2.14 X 10*3/uL (0.90-5.00); Lymphocytes % (A) 28.9 %; MCH 28.9 pg (27.0-32.0); MCHC 32.7 g/dL (32.0-37.0); MCV 88.5 FL (80.0-97.0); Mean Platelet Volume 11.5 FL (9.5-12.2); Monocytes # (A) 0.46 X 10*3/uL (0.20-1.00); Monocytes % (A) 6.2 %; NRBC Per 100 WBC 0 X 10*3/uL (0.00-0.01); Neutrophils # (A) 4.58 X 10*3/uL (1.80-7.70); Neutrophils % (A) 61.8 %; Platelet Count 352 X 10*3/uL (140-440); RBC 4.94 X 10*6/uL (4.10-5.20); RDW 13.1 % (11.5-14.5); WBC 7.41 X 10*3/uL (4.50-10.00)
[2023-07-10 16:14] LABS: % Iron Saturation 17.87 (12.00-45.00); ALT 17 U/L (8-44); AST 18 U/L (13-35); Albumin 4.3 g/dL (3.8-4.9); Albumin/Globulin Ratio 1.59 Ratio (1.60-3.17); Alkaline Phosphatase 95 U/L (41-126); BUN/Creat Ratio 14.64 Ratio (12.00-20.00); Blood Urea Nitrogen 16.1 mg/dL (9.0-27.0); Calcium 9.9 mg/dL (8.7-10.3); Carbon Dioxide 26.6 mmol/L (21.6-31.8); Chloride 104 mmol/L (96-109); Chol/HDL Ratio 4.17 Ratio; Ferritin 91.3 ng/mL (10.0-291.0); Globulin 2.7 g/dL (1.6-3.3); Glucose 93 mg/dL (70-110); Iron 62 UG/DL (50-170); LDL Cholesterol,Calculated 112.9 mg/dL (0.0-131.0); Magnesium 2.1 mg/dL (1.5-2.4); Potassium 3.8 mmol/L (3.5-5.5); Sodium 142 mmol/L (135-145); Total Bilirubin 0.4 mg/dL (0.3-1.2); Total Iron Binding Capacity 347 UG/DL (228-460); Uric Acid 3.1 mg/dL (2.9-7.7)
== END | disposition home or self-care (01) ==
LOC: LABWHC1 09:40
PROVIDERS: ATTEND Internal Medicine
DX: I12.9 Hypertensive chronic kidney disease with stage 1 through stage 4 chronic kidney disease, or unspecified chronic kidney disease (principal); E11.22 Type 2 diabetes mellitus with diabetic chronic kidney disease; N18.2 Chronic kidney disease, stage 2 (mild); E78.2 Mixed hyperlipidemia; E03.9 Hypothyroidism, unspecified; M79.672 Pain in left foot; M25.551 Pain in right hip
CPT/HCPCS: 36415; 73502; 80053; 80061; 81001; 82306; 82570; 82728; 83036; 83540; 83550; 83735; 83970; 84100; 84156; 84443; 84550; 85025; 87086

== ENCOUNTER → 2023-11-26 | Outpatient (CLI) | payer MEDICARE ==
--- NOTE | 2023-11-28 09:01 | MM ---
Reason for Exam: Screening (asymptomatic). Last mammogram was performed 1 year(s) and 2 month(s) ago. Patient History: Menarche at age 13. First Full-Term at age 21. Postmenopausal. Other cancer, age 65. Patient used Estrogen for 5 years. Patient used Progesterone for 5 years. Cyst Aspiration on the Right side. Cyst Aspiration on the Right side. Cyst Aspiration on the Left side. Cyst Aspiration on the Left side. Benign Excisional Biopsy on the left side. 04/27/2000, Benign Stereotactic Core Biopsy on the right side. Risk Values: Cindi 5 year model risk: 2.3%. NCI Lifetime model risk: 4.1%. Prior Study Comparison: 08/12/2021 Left Diagnostic Mammogram, [facility]. 03/01/2022 Bilateral MG 3D diag mammo w/cad [facility], [facility]. 09/01/2022 Bilateral MG 3D diag mammo w/cad [facility], [facility]. Tissue Density: There are scattered areas of fibroglandular density. Findings: Analyzed By CAD. Right breast biopsy clip. Right breast: There is no suspicious group of microcalcifications or new suspicious mass. Left breast: There is no suspicious group of microcalcifications or new suspicious mass. Overall Assessment: Benign, BI-RAD 2 Management: Screening Mammogram of both breasts in [address] [facility] will attempt to contact patient to return for supplemental views and ultrasound if indicated. Patient should continue monthly self-breast exams. A clinical breast exam by your physician is recommended on an annual basis. This exam should not preclude additional follow-up of suspicious palpable abnormalities. Note on Cindi scores and lifetime risk: 1. A Cindi score greater than 3% is considered moderate risk. If this is the case, consider specialist referral to assess eligibility for a risk reducing agent. 2. If overall lifetime risk for the development of breast cancer is 20% or higher, the patient may qualify for future screening with alternating mammogram and breast MRI. Electronically signed and approved by: Gary Luna DO
== END | disposition home or self-care (01) ==
LOC: RADMAMWWP 10:01
PROVIDERS: ATTEND Internal Medicine
DX: Z12.31 Encounter for screening mammogram for malignant neoplasm of breast (principal); Z78.0 Asymptomatic menopausal state
CPT/HCPCS: 77063; 77067

== ENCOUNTER → 2024-03-14 | Outpatient (CLI) | payer MEDICARE ==
--- NOTE | 2024-03-15 17:51 | CA ---
Transthoracic Echo Report Name: Lisandra Viveros Age: 78 Gender: F : 1945 Exam Date: 03/14/2024 12:03 Exam Location: [facility] Ht (in): 60 Wt (lb): 136 Ordering Physician: Attending/Referring Phys: Leonardo Jang MD Mva Operator María Fontaine RDCS Procedure CPT: Indications: Cardiac Hx: Technical Quality: Fair Contrast 1: Total Dose (mL): Contrast 2: Total Dose (mL): MEASUREMENTS (Male / Female) Normal Values 2D ECHO LV Diastolic Diameter PLAX 4.6 cm 4.2 - 5.9 / 3.9 - 5.3 cm LV Systolic Diameter PLAX 3.0 cm IVS Diastolic Thickness 0.8 cm 0.6 - 1.0 / 0.6 - 0.9 cm LVPW Diastolic Thickness 0.9 cm 0.6 - 1.0 / 0.6 - 0.9 cm LV Relative Wall Thickness 0.4 LVOT Diameter 1.9 cm LA Volume 25.5 cm??? 18 - 58 / 22 - 52 cm??? LA Volume Index 15.6 cm???/m??? 16 - 28 cm???/m??? Ascending Aorta Diameter 3.3 cm DOPPLER AV Peak Velocity 135.4 cm/s AV Peak Gradient 7.3 mmHg AV Mean Velocity 94.8 cm/s AV Mean Gradient 3.9 mmHg AV Velocity Time Integral 29.5 cm LVOT Peak Velocity 105.1 cm/s LVOT Peak Gradient 4.4 mmHg LVOT Velocity Time Integral 23.2 cm LVOT Stroke Volume 67.4 cm??? LVOT Stroke Volume Index 42.5 ml/m??? AV Area Cont Eq vti 2.3 cm??? AV Area Cont Eq pk 2.3 cm??? MV Area PHT 3.4 cm??? Mitral E Point Velocity 69.0 cm/s Mitral A Point Velocity 82.6 cm/s Mitral E to A Ratio 0.8 MV Deceleration Time 222.5 ms PV Peak Velocity 107.7 cm/s PV Peak Gradient 4.6 mmHg FINDINGS Left Ventricle Left ventricular ejection fraction is estimated at 55-60 %. Left ventricular cavity size normal. Left ventricular wall thickness normal. No obvious regional wall motion abnormalities. Right Ventricle Normal right ventricular size and function. Unable to estimate the right ventricular systolic pressure. Right Atrium Normal right atrial size. Left Atrium Normal left atrial size. Mitral Valve Structurally normal mitral valve. No evidence for mitral valve prolapse. No mitral stenosis. Trace mitral regurgitation. Aortic Valve Trileaflet aortic valve. No aortic valve stenosis or regurgitation. Tricuspid Valve Structurally normal tricuspid valve. No tricuspid stenosis. No tricuspid regurgitation. Pulmonic Valve Pulmonic valve not well visualized. No pulmonic stenosis. No pulmonic regurgitation. Pericardium No pericardial effusion. Aorta Normal size aortic root and proximal ascending aorta. CONCLUSIONS Left ventricular ejection fraction 55-60% Trace mitral regurgitation No pericardial effusion Previewed by: Dr. Yannick Zhang DO (Electronically Signed) Final Date: 15 March 2024 17:51
--- NOTE | 2024-04-15 18:06 | US ---
Site ID [facility] Lisandra Thomas ID [id number] 1945 Age/Gender: 78Y, O Order # N/A Procedure US carotid duplex BILAT Date 03/14/2024 12:33:00 PM EXAMINATION TYPE: US carotid duplex BILAT DATE OF EXAM: 03/26/2024 COMPARISON: None, please note PACS Production downtime occurred during the radiologist interpretation of these images with limited priors/reports. CLINICAL INDICATION: 78 year old with evaluation for stenosis. TECHNIQUE: Carotid duplex ultrasound examination. Indirect Doppler criteria was utilized. FINDINGS: EXAM MEASUREMENTS: RIGHT: Peak Systolic Velocity (PSV) cm/sec ----- Right CCA: 82.7 ----- Right ICA: 97.3 ----- Right ECA: 62.5 ICA/CCA ratio: 1.2 RIGHT: End Diastole cm/sec ----- Right CCA: 18.8 ----- Right ICA: 24.6 ----- Right ECA: 11.1 LEFT: Peak Systolic Velocity (PSV) cm/sec ----- Left CCA: 87.9 ----- Left ICA: 98.4 ----- Left ECA: 70.9 ICA/CCA ratio: 1.1 LEFT: End Diastole cm/sec ----- Left CCA: 24.4 ----- Left ICA: 35.4 ----- Left ECA: 9.5 VERTEBRALS (direction of flow): Right Vertebral: Antegrade Left Vertebral: Antegrade Rhythm: Normal [employer] NOTES: Within normal limits IMPRESSION: No ultrasound evidence for hemodynamically significant stenosis of the bilateral visualized carotid a rterial system. Criteria for Assigning % of Stenosis / Diameter reduction (Estimation based on the indirect measurements of the internal carotid artery velocities (ICA PSV). 1. Normal (no stenosis)=ICA PSV < 125 cm/s: ratio < 2.0: ICA EDV<40 cm/s. 2. Less than 50% stenosis=ICA PSV < 125 cm/s: ratio < 2.0: ICA EDV<40 cm/s. 3. 50 to 69% stenosis=ICA PSV of 125 to 230 cm/s: ration 2.0 ? 4.0: ICA EDV 40-100 cm/s. 4. Greater than 70% stenosis to near occlusion= ICA PSV > 230 cm/s: ratio > 4.0: ICA EDV > 100 cm/s. 5. Near occlusion= ICA PSV velocities may be low or undetectable: variable ratio and ICA EDV. 6. Total occlusion=unable to detect flow.
== END | disposition home or self-care (01) ==
LOC: RADUSWWP 11:36
PROVIDERS: ATTEND Internal Medicine
DX: I25.10 Atherosclerotic heart disease of native coronary artery without angina pectoris (principal); I65.23 Occlusion and stenosis of bilateral carotid arteries
CPT/HCPCS: 93306; 93880